=== PATIENT | female | born 1950 | race Caucasian/White ===

== ENCOUNTER → 2016-10-21 | Outpatient (CLI) | payer MEDICARE | END | disposition home or self-care (01) | LOC: PCVCCLINIC 12:00 | PROVIDERS: ATTEND Internal Medicine | DX: I11.0 Hypertensive heart disease with heart failure (principal); I50.32 Chronic diastolic (congestive) heart failure; I35.0 Nonrheumatic aortic (valve) stenosis; I73.9 Peripheral vascular disease, unspecified; E78.2 Mixed hyperlipidemia; G47.33 Obstructive sleep apnea (adult) (pediatric); F41.9 Anxiety disorder, unspecified; Z98.1 Arthrodesis status; Z96.651 Presence of right artificial knee joint; Z96.641 Presence of right artificial hip joint; Z79.899 Other long term (current) drug therapy; Z88.2 Allergy status to sulfonamides; Z91.048 Other nonmedicinal substance allergy status; Z88.1 Allergy status to other antibiotic agents | CPT/HCPCS: 80061; 93005; G0463 ==

== ENCOUNTER → 2016-12-03 | Outpatient (CLI) | payer MEDICARE ==
--- NOTE | 2016-12-03 14:54 | PCVCIMAG ---
EXAM: BILATERAL LOWER EXTREMITY ARTERIAL DUPLEX INDICATION: Peripheral Arterial Disease. Leg pain. FINDINGS: Right Leg: Satisfactory arterial waveforms throughout the common/profunda/superficial femoral, popliteal, anterior tibial, peroneal, and posterior tibial arteries. No flow limiting stenosis seen. Left Leg: High-grade stenosis or occlusion of the common femoral artery. Blunted arterial waveforms in the profunda femoral artery, superficial femoral artery and popliteal artery without definite additional flow-limiting stenosis. The anterior tibial, peroneal, and posterior tibial arteries are patent. IMPRESSION: No flow limiting stenosis in the right lower extremity. High-grade stenosis or occlusion of the left common femoral artery. Further evaluation with abdominal and pelvic CTA examination is suggested since ultrasound imaging of the left iliac system was incomplete. LOC:[id number]
--- NOTE | 2016-12-03 14:57 | PCVCIMAG ---
EXAM: AORTOILIAC DUPLEX INDICATION: Peripheral arterial disease FINDINGS: AORTA: Suprarenal aorta measures maximum diameter of 2.4 cm. There is not a fusiform infrarenal aortic aneurysm. The infrarenal aorta measures maximum diameter of 2.2 cm. No aortic stenosis. RIGHT COMMON ILIAC ARTERY: Maximum diameter is 1.7 cm. No significant stenosis. RIGHT EXTERNAL ILIAC ARTERY: No significant stenosis. LEFT COMMON ILIAC ARTERY: Incompletely identified due to overlying bowel gas. There is some concern of high-grade stenosis or occlusion given blunted arterial waveforms. LEFT EXTERNAL ILIAC ARTERY: Not well seen. IMPRESSION: No abdominal aortic aneurysm. No definite right common or external iliac artery stenosis. Left common iliac artery incompletely identified and further evaluation with CT angiography is suggested. LOC:[id number]
== END | disposition home or self-care (01) ==
LOC: PCVCIMAG 11:08
PROVIDERS: ATTEND Internal Medicine
DX: I73.9 Peripheral vascular disease, unspecified (principal); I11.0 Hypertensive heart disease with heart failure; I50.32 Chronic diastolic (congestive) heart failure; E78.2 Mixed hyperlipidemia; I35.0 Nonrheumatic aortic (valve) stenosis
CPT/HCPCS: 93925; 93978

== ENCOUNTER → 2016-12-04 | Outpatient (CLI) | payer MEDICARE ==
--- NOTE | 2016-12-04 18:00 | PCVCIMAG ---
APPROVED REPORT Study performed: 12/04/2016 13:41:38 EXAM: Comprehensive 2D, Doppler, and color-flow Echocardiogram Patient Location: Echo lab BSA: 1.99 HR: 50 bpm Rhythm: Bradycardia Other Information Study Quality: Fair Risk Factors: Cardiac Risk Factors: HTN,Obst sleep apnea Indications Aortic Valve Disease Congestive Heart Failure Hypertension/HDD 2D Dimensions IVSd: 9.53 (7-11mm)LVOT Diam: 21.01 (18-24mm) LVDd: 47.26 mm PWd: 9.42 (7-11mm)Ascending Ao: 31.38 (22-36mm) LVDs: 26.97 (25-40mm) Left Atrium: 37.06 (27-40mm) Aortic Root: 23.63 mm LV Single Plane 4CH: 60.89 % LV Single Plane 2CH: 61.38 %Mahoney's LVEF: 61.13 % Biplane EF: 61.9 % Volumes Left Atrial Volume (Systole) Single Plane 4CH: 70.25 mLSingle Plane 2CH: 51.49 mL Biplane LA Volume: 61.00 mLLA ESV Index: 31.00 mL/m2 Aortic Valve AoV Peak Jason.: 2.91 m/s AO Peak Gr.: 35.44 mmHgLVOT Max P.35 mmHg AO Mean Gr.: 19.43 mmHgLVOT Mean P.89 mmHg AO V2 Mean: 2.13 m/sLVOT Max V: 1.72 m/s AO V2 VTI: 80.75 cmLVOT Mean V: 1.24 m/s FROY (VTI): 1.94 [id number] V1 VTI: 45.25 cm FROY Vmax: 2.04 cm2 SV (LVOT): 156.72 mL Mitral Valve E/A Ratio: 1.0 MV Decel. Time: 290.84 ms MV E Max Jason.: 0.96 m/s MV A Jason.: 0.97 m/s IVRT: 96.89 ms TDI E/Lateral E': 12.00E/Medial E': 19.20 Medial E' Jason.: 0.05 m/s Lateral E' Jason.: 0.08 m/s Pulmonary Valve PV Peak Jason.: 1.02 m/sPV Peak Gr.: 4.13 mmHg Tricuspid Valve TR Peak Jason.: 2.01 m/s TR Peak Gr.: 16.22 mmHg TV Vmax: 0.71 m/sPA Pressure: 23.00 mmHg Left Ventricle The left ventricle is normal size. There is normal LV segmental wall motion. There is normal left ventricular wall thickness. Left ventricular systolic function is normal. The left ventricular ejection fraction is within the normal range. LVEF is 60-65%. Right Ventricle The right ventricle is normal size. The right ventricular systolic function is normal. Atria The left atrium size is normal. The right atrium size is normal. Aortic Valve The aortic valve is not well visualized. Aortic valve is calcified No aortic regurgitation is present. Mild aortic stenosis. Peak aortic valve gradient is 34 mmHg. Highest mean aortic valve gradient is 19mmHg. Calculated FROY by the continuity equation is 1.8cm2. Calculated aortic valve area is 1.8 cm2 with maximum pressure gradient of 33 mmHg and mean pressure gradient of 19 mmHg. Mitral Valve Mild mitral annular calcification There is no mitral valve regurgitation noted. No evidence of mitral valve stenosis. Tricuspid Valve The tricuspid valve is normal in structure. There is no tricuspid valve regurgitation noted. Pulmonic Valve The pulmonary valve is normal in structure. There is no pulmonic valvular regurgitation. Great Vessels The aortic root is normal in size. The ascending aorta is normal in size. IVC is normal in size and collapses with >50% inspiration Pericardium There is no pericardial effusion. There is no pleural effusion. <Conclusion> Left ventricular systolic function is normal. There is normal LV segmental wall motion. LVEF 60-65%. The aortic valve is not well visualized. Aortic valve is calcified Mild to moderately aortic stenotic. Calculated aortic valve area is 1.8 cm2 with maximum pressure gradient of 33 mmHg and mean pressure gradient of 19 mmHg. Mild mitral annular calcification. No mitral valve regurgitation noted. Pulmonary artery pressure could not be reliably ascertained There is no pericardial effusion.
== END | disposition home or self-care (01) ==
LOC: PCVCIMAG 13:42
PROVIDERS: ATTEND Internal Medicine
DX: I35.0 Nonrheumatic aortic (valve) stenosis (principal); G47.30 Sleep apnea, unspecified; I11.0 Hypertensive heart disease with heart failure; I50.9 Heart failure, unspecified; I73.9 Peripheral vascular disease, unspecified; E78.5 Hyperlipidemia, unspecified
CPT/HCPCS: 93306

== ENCOUNTER → 2016-12-16 | Outpatient (CLI) | payer MEDICARE ==
[~2016-12-16] MED LIST: ASPIRIN 325 MG TABLET ONE; CLOPIDOGREL BISULFATE 75 MG TABLET ONE; DIAZEPAM 10 MG TABLET. ONE; EPINEPHrine 1 MG/ML VIAL ONE; HEPARIN SODIUM 5,000 UNIT/ML VIAL for PCVC. ONE; IODIXANOL 270 MG/ML 100 ML VIAL. ONE; IV NORMAL SALINE 1000ML BAG 1,000 ML ONE; IV NORMAL SALINE 500ML BAG 0 ML ONE; LIDOCAINE 1% Multi-Dose 20 ML VIAL. ONE; MIDAZOLAM HCL/PF 2 MG/2 ML VIAL. ONE; VANCOMYCIN 1GM IVPB FOR OMNI 250 ML ONE; fentaNYL PF VIAL 100 MCG/2 ML VIAL ONE
--- NOTE | 2016-12-16 12:01 | PCVCINTER ---
EXAM: 1. AORTOGRAM AND BILATERAL LOWER EXTREMITY RUNOFF ANGIOGRAM 2. BILATERAL RENAL ANGIOGRAPHY 3. RIGHT EXTERNAL ILIAC ARTERY STENT PLACEMENT. 4. LEFT EXTERNAL ILIAC ARTERY STENT PLACEMENT INDICATION: Peripheral arterial disease. Coronary artery disease. Lower extremity pain left greater than right. Hypertension. Renal atherosclerosis. PROCEDURE: Procedure and risks of angiography intervention is appropriate including limb loss stroke and were discussed with the patient's family and consent obtained. The patient's right groin was prepped abnormal sterile fashion. IV conscious sedation was used to procedure with appropriate monitoring from 8:15 AM through 9:45 AM. Ultrasound was used to interrogate the right groin and showed the right common femoral artery to be patent. A permanent spot film was obtained. Under ultrasound guidance access into the right common femoral artery was obtained and a 5 Georgian sheath was placed. Through this a 5 Georgian flush catheter was placed into the abdominal aorta at the level of the renal arteries and AP aortogram was performed. Catheter was positioned at the aortic bifurcation and both oblique views of the pelvis were obtained. Catheter was positioned into the right external iliac artery and right leg runoff angiography was performed. Catheter was exchanged for a visceral catheter was placed into the right renal arteries and right renal angiograms obtained. Catheter was placed into the the left renal arteries and left renal angiograms were obtained. Catheter was advanced to the level of the left external iliac artery and left leg runoff angiography was obtained. Patient was given 4000 units of heparin. A 6 Georgian crossover sheath was placed via the right groin to the level of the left common iliac artery. Stent placement across the areas of high-grade stenosis in the left external iliac artery was carried out with a 8 x 80 Smart control stent with subsequent dilatation to 8.0 mm. Stent placement across the areas of high-grade stenosis in the right external iliac artery was carried out with a 8 x 20 Smart control stent with subsequent dilatation to 8.0 mm. Catheters and wires removed. Sheath was removed and hemostasis obtained using the FISH device. No immediate complications. FINDINGS: Aortogram: There are 2 right and one left renal artery. Minimal plaque infrarenal abdominal aorta without significant stenosis. Pelvis: The right and left common iliac arteries show satisfactory patency. Moderate stenosis proximal right external iliac artery. 80% stenosis mid and distal left external iliac artery. The left internal iliac artery is occluded. The right internal iliac artery is patent. Right renal artery: There are 2 right renal artery both of which show good patency throughout with no branch vessel stenosis. Left renal artery: Minimal plaque proximal vessel does not cause significant stenosis. Right leg: The common femoral and profunda femoral arteries are patent. Minimal scattered plaque in the superficial femoral artery and popliteal artery without significant stenosis. Three-vessel runoff into the foot. Left leg: Extensive irregular plaque mid common femoral artery causes 99% stenosis. The profunda femoral artery is patent. Minimal scattered plaque in the superficial femoral artery and popliteal artery without significant stenosis. Three-vessel runoff into the foot. Right external iliac artery: Following stent placement vessel shows satisfactory patency. Left external iliac artery: Following stent placement vessel shows adequate patency with minimal residual stenosis. IMPRESSION: 99% stenosis mid left common femoral artery caused by extensive irregular plaque. We will arrange for Dr. Escobedo to perform common femoral artery endarterectomy. Moderate right and left external iliac artery stenoses were treated as above with adequate patency restored. follow up LOC:[id number]
== END | disposition home or self-care (01) ==
LOC: PCVCINTER 07:26
PROVIDERS: ATTEND Nuclear Medicine Nuclear Cardiology
DX: I70.213 Atherosclerosis of native arteries of extremities with intermittent claudication, bilateral legs (principal); I25.10 Atherosclerotic heart disease of native coronary artery without angina pectoris; I10 Essential (primary) hypertension; I70.1 Atherosclerosis of renal artery; E78.5 Hyperlipidemia, unspecified; E78.00 Pure hypercholesterolemia, unspecified
CPT/HCPCS: 36252; 37221; 75716; 76937; 99152; 99153; C1725; C1751; C1769; C1876; C1894; J0171; J1644; J2250; J3010; J3370; J7030; Q9966; J7040

== ENCOUNTER → 2017-04-24 | Outpatient (CLI) | payer MEDICARE | END | disposition home or self-care (01) | LOC: PCVCIMAG 10:52 | DX: I70.218 Atherosclerosis of native arteries of extremities with intermittent claudication, other extremity (principal); I10 Essential (primary) hypertension; I35.0 Nonrheumatic aortic (valve) stenosis; E78.00 Pure hypercholesterolemia, unspecified; I77.1 Stricture of artery; Z79.899 Other long term (current) drug therapy; Z79.82 Long term (current) use of aspirin | CPT/HCPCS: 93923; 93978; G0463 ==

== ENCOUNTER → 2017-04-29 | Outpatient (CLI) | payer MEDICARE | END | disposition home or self-care (01) | LOC: PCVCCLINIC 14:02 | DX: I11.0 Hypertensive heart disease with heart failure (principal); I50.32 Chronic diastolic (congestive) heart failure; I35.0 Nonrheumatic aortic (valve) stenosis; E78.5 Hyperlipidemia, unspecified; I73.9 Peripheral vascular disease, unspecified; R94.31 Abnormal electrocardiogram [ECG] [EKG]; G47.33 Obstructive sleep apnea (adult) (pediatric); Z79.899 Other long term (current) drug therapy; Z79.82 Long term (current) use of aspirin | CPT/HCPCS: 80061; 93005; G0463 ==

== ENCOUNTER → 2017-10-28 | Outpatient (CLI) | payer MEDICARE | END | disposition home or self-care (01) | LOC: PCVCIMAG 14:04 | DX: I65.21 Occlusion and stenosis of right carotid artery (principal); I73.9 Peripheral vascular disease, unspecified; I77.1 Stricture of artery; I10 Essential (primary) hypertension; I35.0 Nonrheumatic aortic (valve) stenosis; E78.00 Pure hypercholesterolemia, unspecified; I77.9 Disorder of arteries and arterioles, unspecified; Z79.82 Long term (current) use of aspirin; Z79.899 Other long term (current) drug therapy | CPT/HCPCS: 93880; 93923; 93978; G0463 ==

== ENCOUNTER → 2017-10-30 | Outpatient (CLI) | payer MEDICARE | END | disposition home or self-care (01) | LOC: PCVCCLINIC 12:37 | DX: I11.0 Hypertensive heart disease with heart failure (principal); I50.30 Unspecified diastolic (congestive) heart failure; I35.0 Nonrheumatic aortic (valve) stenosis; E78.5 Hyperlipidemia, unspecified; G47.33 Obstructive sleep apnea (adult) (pediatric); I73.9 Peripheral vascular disease, unspecified; Z88.8 Allergy status to other drugs, medicaments and biological substances; Z79.82 Long term (current) use of aspirin; Z79.899 Other long term (current) drug therapy | CPT/HCPCS: 80061; 93005; G0463 ==

== ENCOUNTER → 2018-05-05 | Outpatient (CLI) | payer MEDICARE ==
--- NOTE | 2018-05-05 15:03 | PCVCIMAG ---
APPROVED REPORT Study performed: 05/05/2018 14:07:29 EXAM: Comprehensive 2D, Doppler, and color-flow Echocardiogram Patient Location: Echo lab Status: routine BSA: 1.96 HR: 53 bpmBP: 176/80 mmHg Rhythm: Bradycardia Other Information Study Quality: Adequate Indications Dyspnea aortic stenosis, diastolic CHF 2D Dimensions IVSd: 14.01 (7-11mm)LVOT Diam: 21.30 (18-24mm) LVDd: 43.49 mm PWd: 14.17 (7-11mm) LVDs: 32.77 (25-40mm) Left Atrium: 38.36 (27-40mm) Aortic Root: 29.56 mm LV Single Plane 4CH: 67.46 % LV Single Plane 2CH: 51.17 % Biplane EF: 60.3 % Volumes Left Atrial Volume (Systole) Single Plane 4CH: 86.28 mLSingle Plane 2CH: 83.25 mL LA ESV Index: 47.00 mL/m2 Aortic Valve AoV Peak Jason.: 3.07 m/s AO Peak Gr.: 37.82 mmHgLVOT Max P.43 mmHg AO Mean Gr.: 23.73 mmHgLVOT Mean P.65 mmHg AO V2 Mean: 2.31 m/sLVOT Max V: 1.27 m/s AO V2 VTI: 88.55 cm FROY (VTI): 1.32 [id number] V1 VTI: 32.72 cm FROY Vmax: 1.47 cm2 Mitral Valve E/A Ratio: 0.8 MV Decel. Time: 330.04 ms MV E Max Jason.: 0.83 m/s MV A Jason.: 1.01 m/s MV PHT: 95.71 ms IVRT: 103.81 ms Pulmonary Valve PV Peak Jason.: 0.97 m/sPV Peak Gr.: 3.77 mmHg Pulmonary Vein P Vein S: 0.30 m/sP Vein A: 0.25 m/s P Vein D: 0.40 m/sP Vein A Dur.: 134.9 msec P Vein S/D Ratio: 0.75 Tricuspid Valve TR Peak Jason.: 2.13 m/s TR Peak Gr.: 18.12 mmHg Left Ventricle The left ventricle is normal size. There is normal LV segmental wall motion. Mild to moderate concentric left ventricular hypertrophy. Left ventricular systolic function is normal. The left ventricular ejection fraction is within the normal range. LVEF is 55-60%. Grade I - abnormal relaxation pattern. Right Ventricle The right ventricle is normal size. The right ventricular systolic function is normal. Atria Left atrium is moderately dilated. The right atrium size is normal. Aortic Valve The aortic valve is moderately calcified No aortic regurgitation is present. There is mild to moderate valvular aortic stenosis. Calculated aortic valve area is 1.5 cm2 with maximum pressure gradient of 38 mmHg and mean pressure gradient of 24 mmHg. Mitral Valve Mild mitral annular calcification There is no mitral valve regurgitation noted. No evidence of mitral valve stenosis. Tricuspid Valve The tricuspid valve is normal in structure. Trace tricuspid regurgitation with PAP of 25 mmHg. Pulmonic Valve The pulmonary valve is normal in structure. There is no pulmonic valvular regurgitation. Great Vessels The aortic root is normal in size. IVC is normal in size and collapses >50% with inspiration. Pericardium There is no pericardial effusion. There is no pleural effusion. <Conclusion> Left ventricular systolic function is normal. There is normal LV segmental wall motion. LVEF is 55-60%. Mild diastolic dysfunction The aortic valve is moderately calcified There is mild to moderate valvular aortic stenosis, no insufficiency. Calculated aortic valve area is 1.5 cm2 with maximum pressure gradient of 38 mmHg and mean pressure gradient of 24 mmHg. Mild mitral annular calcification. No mitral valve regurgitation noted. Trace tricuspid regurgitation with pulmonary artery pressure of 25 mmHg. There is no pericardial effusion.
== END | disposition home or self-care (01) ==
LOC: PCVCIMAG 14:11
PROVIDERS: ATTEND Internal Medicine
DX: I11.0 Hypertensive heart disease with heart failure (principal); I50.32 Chronic diastolic (congestive) heart failure; I35.0 Nonrheumatic aortic (valve) stenosis; E78.5 Hyperlipidemia, unspecified; I73.9 Peripheral vascular disease, unspecified; G47.33 Obstructive sleep apnea (adult) (pediatric); R73.03 Prediabetes; Z79.899 Other long term (current) drug therapy
CPT/HCPCS: 36415; 80061; 93005; 93306; G0463

== ENCOUNTER → 2019-01-15 | Outpatient (CLI) | payer MEDICARE ==
--- NOTE | 2019-01-15 11:44 | PCVCIMAG ---
EXAM: BILATERAL CAROTID DUPLEX INDICATION: Carotid Occlusive Disease. FINDINGS: Doppler Measurements (centimeters per second): RIGHT: Peak CCA-73, Peak ECA-80, Diastolic ICA-29, Peak ICA-106, ICA/CCA Ratio-1.5. LEFT: Peak CCA-73, Peak ECA-90, Diastolic ICA-25, Peak ICA-109, ICA/CCA Ratio-1.5. RIGHT CAROTID: The carotid bulb has moderate plaque. The proximal internal carotid artery shows <40% stenosis. The common carotid artery shows no significant stenosis. The external carotid artery shows no significant stenosis. LEFT CAROTID: The carotid bulb has moderate plaque. The proximal internal carotid artery shows <40% stenosis. The common carotid artery shows no significant stenosis. The external carotid artery shows no significant stenosis. Antegrade flow in both vertebral arteries. IMPRESSION: <40% stenosis of the right internal carotid artery with moderate plaque. <40% stenosis of the left internal carotid artery with moderate plaque. LOC:[id number]
--- NOTE | 2019-01-15 15:30 | PCVCIMAG ---
EXAM: NONINVASIVE ARTERIAL EXAMINATION OF BOTH LOWER EXTREMITIES INCLUDING PRE AND POST EXERCISE PRESSURE MEASUREMENTS AND DOPPLER WAVEFORMS INDICATION: Peripheral Arterial Disease. Leg pain. FINDINGS: Right Brachial: 160 mm Hg. Right Dorsalis Pedis: 145 mm Hg. Right Posterior Tibial: 146 mm Hg. Right TASHA = 0.91. Left Brachial: 157 mm Hg. Left Dorsalis Pedis: 146 mm Hg. Left Posterior Tibial: 165 mm Hg. Left TASHA = 1.03. Post Exercise: Right Brachial 171 mm Hg. Right Posterior Tibial: 155 mm Hg. Left Posterior Tibial: 153 mm Hg. Right TASHA = 0.91. Left TASHA = 0.89. IMPRESSION: No resting ischemia in the right lower extremity. No exercise induced ischemia in the right lower extremity. No resting ischemia in the left lower extremity. No exercise induced ischemia in the left lower extremity. LOC:[id number]
--- NOTE | 2019-01-15 15:32 | PCVCIMAG ---
EXAM: AORTOILIAC DUPLEX INDICATION: Peripheral arterial disease FINDINGS: AORTA: Suprarenal aorta measures maximum diameter of 2.2 cm. There is not a fusiform infrarenal aortic aneurysm. The infrarenal aorta measures maximum diameter of 1.9 cm. No aortic stenosis. RIGHT COMMON ILIAC ARTERY: Maximum diameter is 1.3 cm. No significant stenosis. RIGHT EXTERNAL ILIAC ARTERY: 60-70% restenosis. LEFT COMMON ILIAC ARTERY: Maximum diameter is 1.2 cm. No significant stenosis. LEFT EXTERNAL ILIAC ARTERY: 60-70% restenosis. IMPRESSION: No abdominal aortic aneurysm. 60-70% restenosis seen in the right and left external iliac arteries within prior stents. LOC:[id number]
== END | disposition home or self-care (01) ==
LOC: PCVCIMAG 10:02
PROVIDERS: ATTEND Internal Medicine
DX: I73.9 Peripheral vascular disease, unspecified (principal); I65.23 Occlusion and stenosis of bilateral carotid arteries; I11.0 Hypertensive heart disease with heart failure; I50.32 Chronic diastolic (congestive) heart failure; I35.0 Nonrheumatic aortic (valve) stenosis; E78.5 Hyperlipidemia, unspecified; G47.33 Obstructive sleep apnea (adult) (pediatric); I77.1 Stricture of artery; Z88.2 Allergy status to sulfonamides; Z88.8 Allergy status to other drugs, medicaments and biological substances; Z72.89 Other problems related to lifestyle; Z79.899 Other long term (current) drug therapy
CPT/HCPCS: 36415; 80061; 93005; 93880; 93924; 93978; G0463